=== PATIENT | female | born 1945 | race African-American/Black ===

== ENCOUNTER 2017-04-11 18:30 | Emergency (ER) | payer MEDICARE, BC ==
--- NOTE | ~2017-04-11 | EKG ---
PATIENT: MEET NOVOA UNIT #: [id number] Ventricular Rate: 66 BPM Atrial Rate: 66 BPM P-R Interval: 188 ms QRS Duration: 92 ms Q-T Interval: 396 ms QTC Calculation(Bezet): 415 ms P [place]: 58 degrees Calculated R [place]: -67 degrees Calculated T [place]: 72 degrees Diagnosis Line: Normal sinus rhythm Diagnosis Line: Left anterior fascicular block Diagnosis Line: Abnormal ECG Diagnosis Line: Diagnosis Line: Confirmed by AJTIH ORTEGA MD ([id number]) on Diagnosis Line: 04/13/2017 9:57:00 AM INTERPRETING MD: NOAH
[~2017-04-11 18:30] MED LIST: LAMICTAL PO; LOPRESSOR PO; METFORMIN PO; PAXIL PO; PHENERGAN25 M1 PO; PREDNISONE PO; ZESTORETIC 20/21 TAB PO; ZOCOR PO
[2017-04-11 19:13] LABS: BASOPHIL# 0.1 X10e3 (0-0.3); BASOPHIL% 0.6 % (0-2.5); EOSINOPHIL# 0.2 X10e3 (0-0.7); EOSINOPHIL% 1.3 % (0.0-7.0); HEMATOCRIT 41.1 % (35.0-45.0); HEMOGLOBIN 13.5 gm/dL (12.0-16.0); LYMPHOCYTE% 25.1 % (17.0-45.0); MEAN CELL VOLUME 84.4 FL (83-96); MEAN CORPUSCULAR HEMOGLOBIN 27.6 PG (28-34); MEAN CORPUSCULAR HGB CONC 32.8 g/dL (30-36); MEAN PLATELET VOLUME 7.7 FL (6.5-11.5); MONOCYTE% 8.6 % (3.0-12.0); NEUTROPHIL# 7.6 X10e3 (1.5-7.1); NEUTROPHIL% 64.4 % (40-75); PLATELET COUNT 318 X10e3 (140-420); RED BLOOD COUNT 4.87 X10e (3.90-5.30); RED CELL DISTRIBUTION WIDTH 14.6 % (11.0-15.5); WHITE BLOOD COUNT 11.9 X10e3 (4.0-10.5)
[2017-04-11 19:14] LABS: DIFF IND NO
[2017-04-11 19:25] LABS: POC - CKMB 1.3 ng/mL (0.0-7.9); POC - TROPONIN <0.05 ng/mL (<=0.05)
[2017-04-11 19:36] LABS: CALCIUM SERUM 9.6 mg/dL (8.4-10.2); CREATININE SERUM 0.8 mg/dL (0.6-1.4)
[2017-04-11 19:40] LABS: POTASSIUM 2.9 mmol/L (3.5-5.1)
[2017-04-11 20:34] LABS: URINE SOURCE CLEAN CATCH
[2017-04-11 20:41] LABS: URINE APPEARANCE CLEAR; URINE BILIRUBIN NEG (NEG); URINE BLOOD 1+ (NEG); URINE COLOR YELLOW; URINE GLUCOSE NEG (NEG); URINE KETONE NEG (NEG); URINE LEUKOCYTE ESTERASE NEG (NEG); URINE NITRATE NEG (NEG); URINE PH 8.5 (5-8); URINE PROTEIN 2+ (NEG); URINE SPECIFIC GRAVITY 1.009 (1.003-1.035); URINE UROBILINOGEN 0.2 MG/DL (NEG)
[2017-04-11 20:45] LABS: CULTURE INDICATED? NO; URINE BACTERIA AUWI NEG (NEGATIVE); URINE SQUAMOUS EPITHELIAL CELL NONE SEEN /[HPF]; UWBCS1 AUWI 0-2 (0-5)
== END 2017-04-11 21:14 | disposition home or self-care (01) ==
LOC: CED 18:30
PROVIDERS: Emergency Medicine
DX: E87.6 Hypokalemia (principal); R51 Headache; Z88.5 Allergy status to narcotic agent; Z91.041 Radiographic dye allergy status; Z88.8 Allergy status to other drugs, medicaments and biological substances
CPT/HCPCS: 36415; 80048; 81003; 82553; 82947; 83735; 84484; 85025; 93005; 96361; 96374; 99285; J1885

== ENCOUNTER 2017-04-15 14:31 | Emergency (ER) | payer MEDICARE, BC ==
--- NOTE | ~2017-04-15 | US85 ---
[facility] A Service of [facility] & [facility] RADIOLOGY TEXT RESULTS PATIENT: MEET NOVOA LOCATION: [facility] : 45 UNIT #: [id number] AGE: [address]: Franco Palomo MD SEX: F ORDER DR: [id number] [facility] [address] [place], [place] [address] [id number] E MR#: [id number] Acc #: [id number] NAME: MEET NOVOA : 1945 SEX: F STUDY DATE/TIME: 04/15/2017 15:35 UNIT: [facility] ROOM: STUDY DESCRIPTION: LE Veins Unilat or Ltd Stdy Attending Physician: Franco Palomo M.D. Ordering Physician: Ed Gera Mauro M.D. Primary Care Physician: Soraya Meléndez M.D. MEDICAL IMAGING REPORT This report is preliminary unless electronic signature is present EXAM Right lower extremity, venous Duplex; 04/15/2017. HISTORY Right lower extremity pain and edema for 2 weeks. Evaluate for deep vein thrombosis. TECHNIQUE Venous ultrasound examination of the right lower extremity was performed using grayscale, spectral Doppler and color flow Doppler imaging. FINDINGS The examination is negative. There is no evidence of right lower extremity deep venous thrombus from the groin to the lower calf. Visualized greater saphenous vein is also patent. IMPRESSION Negative examination. No evidence of right lower extremity DVT. Dictated by... Nadir Staton M.D. THIS IS AN ELECTRONICALLY VERIFIED REPORT Nadir Staton M.D. at 04/16/2017 2:17 PM PK/chente TD: 04/15/2017 21:08 JOB #: [id number] MEDICAL IMAGING REPORT Page 1 of 1 COPY
== END 2017-04-15 17:14 | disposition home or self-care (01) ==
LOC: CED 14:31
DX: M79.661 Pain in right lower leg (principal); K21.9 Gastro-esophageal reflux disease without esophagitis; J45.909 Unspecified asthma, uncomplicated; F17.200 Nicotine dependence, unspecified, uncomplicated; Z88.8 Allergy status to other drugs, medicaments and biological substances; Z88.5 Allergy status to narcotic agent; Z88.6 Allergy status to analgesic agent
CPT/HCPCS: 93971; 99283

== ENCOUNTER → 2017-04-21 | Outpatient (CLI) | payer MEDICARE, BC ==
[~2017-04-21] MED LIST changes: +ALDACTONE25 MG PO; +ALL DAY ALLERGY10 M2 PO; +AUGMENTIN PO; +CALCITONIN-SAL3.7 ML; +DOXAZOSIN MESYLA2 MG PO; +DYAZIDE 371 CAP 37.5 PO; +FLEXERIL10 MG PO; +HYDRALAZINE HCL25 MG PO; +KCL PO; +LYRICA25 MG DOB; +METFORMIN HCL500 M1 PO; +METOPROLOL SUCC25 MG PO; +PATIENT'S PHARMACY; +PAXIL30 MG PO; +PRAVASTATIN SOD40 MG PO; +VITAMIN B12-FO1 EACH PO; +VITAMIN D250000 UNIT PO; +VOLTAREN75 MG PO; +ZYRTEC1 MG/1 ML PO
--- NOTE | ~2017-04-21 | CT14 ---
[facility] A Service of [facility] & [facility] RADIOLOGY TEXT RESULTS PATIENT: MEET NOVOA [facility] UNIT #: [id number] AGE: [address]: Andrew Santoro MD SEX: F ORDER DR: [id number] [facility] [address] [place], [place] [address] [id number] O MR#: [id number] Acc #: [id number] NAME: MEET NOVOA : 1945 SEX: F STUDY DATE/TIME: 04/21/2017 15:22 UNIT: [facility] ROOM: STUDY DESCRIPTION: CT Angio Abdomen and Pelvis Attending Physician: Andrew Santoro M.D. Referring Physician: Andrew Santoro M.D. Ordering Physician: Andrew Santoro M.D. Primary Care Physician: Soraya Meléndez M.D. MEDICAL IMAGING REPORT This report is preliminary unless electronic signature is present EXAM CT angiogram of the abdomen and pelvis. CLINICAL HISTORY This patient is status post endovascular repair of an abdominal aortic aneurysm was performed on October 20, 2014. This is a followup study. COMPARISON Comparison is made to a prior study from October 21, 2016, which showed a persistent type 2 endoleak. TECHNIQUE Axial precontrast imaging was obtained through the stent followed by arterial phase imaging through the abdomen and pelvis and 90 second delayed-phase imaging through the stent. Following this, 3-D reformatted images were obtained. This CT exam was performed with one or more of the following radiation dose reduction techniques: automatic exposure control, adjustment of mA and/or kV according to patient size, and iterative reconstruction. FINDINGS Images through the lung bases demonstrate bilateral emphysematous changes. Mild scarring at the left lung base is stable when compared to prior examinations. Abdominal aortic stent graft extends in the origins of the renal arteries into the common iliac arteries bilaterally. On today's examination, the aneurysm sac actually measures smaller at 4.1 cm, previously in October of 2016, it measured up to 4.4 cm, and more inferiorly, it measures 4.0 x 3.3 cm, previously 4.3 x 3.4 cm. I do think there is probably a small persistent endoleak supplied by the lumbar artery. This is best seen on the delayed phase imaging. Certainly, however, it is much less apparent than on prior examinations. Celiac axis appears widely patent. The [facility] A Service of [facility] RADIOLOGY TEXT RESULTS PATIENT: MEET NOVOA LOCATION: 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 Superior mesenteric artery is widely patent. Renal arteries do appear to be patent. 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 There is reflux of contrast material into the hepatic veins on the arterial phase exam. This finding can be seen with right-sided heart failure, but is stable when compared to the prior study. There is a 1.8 cm left renal nodule which has been unchanged on exams dating back to April of 2015, and thus it is felt to be benign. There are bilateral renal cysts. There is some atrophy seen within the left kidney inferiorly. This has been present on prior examinations and again likely reflects some ischemia. Uterus is surgically absent. There is colonic diverticulosis without any evidence of diverticulitis. No free fluid or adenopathy is seen within the pelvis. No aggressive osseous abnormalities are seen. IMPRESSION 1. The patient actually appears to have a decrease in the size of the aneurysm sac when compared to the prior examinations, now measuring up to about 4.1 cm in maximal dimensions. This has decreased from 4.4 cm in October of this year. I do think there is probably a small persistent endoleak but it is very subtle when compared to prior examinations, and is best seen on the delayed phase imaging. 2. 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 3. Stable left adrenal nodule not significantly changed when compared to April of 2015 and is felt to be benign. 4. Colonic diverticulosis without any evidence of diverticulitis. Dictated by... Devora Vizcaino M.D. THIS IS AN ELECTRONICALLY VERIFIED REPORT Devora Vizcaino M.D. at 04/23/2017 5:00 PM KHRIS/chente TD: 04/22/2017 18:34 JOB #: [id number] MEDICAL IMAGING REPORT Page 1 of 1 COPY
[2017-04-21 14:51] LABS: CREATININE SERUM 0.8 mg/dL (0.6-1.4)
== END | disposition home or self-care (01) ==
LOC: CCAT 13:45 → CLAB 13:45 → CCAT 14:00
PROVIDERS: Surgery Vascular Surgery
DX: T82.330A Leakage of aortic (bifurcation) graft (replacement), initial encounter (principal); I71.4 Abdominal aortic aneurysm, without rupture; E27.8 Other specified disorders of adrenal gland; K57.30 Diverticulosis of large intestine without perforation or abscess without bleeding
CPT/HCPCS: 36415; 74174; 82565; Q9967

== ENCOUNTER → 2017-05-06 | Outpatient (CLI) | payer MEDICARE, BC ==
--- NOTE | ~2017-05-06 | BD1 ---
[facility] A Service of [facility] & [facility] RADIOLOGY TEXT RESULTS PATIENT: MEET NOVOA LOCATION: [facility] : 45 UNIT #: [id number] AGE: [address]: Soraya Meléndez MD SEX: F ORDER DR: [id number] [facility] [address] [place], [place] [address] [id number] O MR#: [id number] Acc #: [id number] NAME: MEET NOVOA : 1945 SEX: F STUDY DATE/TIME: 05/06/2017 14:53 UNIT: [facility] ROOM: STUDY DESCRIPTION: BD Dexa Bone Dens 1+ Site Attending Physician: Soraya Meléndez M.D. Referring Physician: Soraya Meléndez M.D. Ordering Physician: Soraya Meléndez M.D. Primary Care Physician: Soraya Meléndez M.D. MEDICAL IMAGING REPORT This report is preliminary unless electronic signature is present EXAM DXA scan, 05/06/2017 HISTORY Status post menopause with no hormone replacement therapy. Osteopenia. Hysterectomy at age 41 with removal of one ovary. Arthritis and diabetes. Hypertension with blood pressure medication for 30 years. Smoking history for 40 years. FINDINGS Bone mineral density in the lumbar spine from L1-L4 was 1.062 g/cm2 which is 0.8 standard deviations below the mean when compared to the young adult reference population which is within the range of normal. This is 1.6 standard deviations above the mean when compared to the age-matched population. Compared with 09/22/2014 there has been an increase in bone mineral density in the lumbar spine of 1.1%. Bone mineral density in the left femoral neck was 0.803 g/cm2 which is 1 standard deviation below the mean when compared to the young adult reference population which is characteristic of osteopenia. This is 0.4 standard deviations above the mean when compared to the age-matched population. Compared with 09/22/2014 there has been a decrease in bone mineral density in the left hip of 4.4%. IMPRESSION Bone mineral density in the lumbar spine within the range of normal and within the left hip characteristic of osteopenia. Compared with 09/22/2014 there has been an increase in bone mineral density in the lumbar spine and a decrease in bone mineral density in the left hip. Dictated by... Nadir Staton M.D. [facility] A Service of [facility] RADIOLOGY TEXT RESULTS PATIENT: MEET NOVOA [id number] : [birth year] UNIT #: [id number] AGE: [address]: Soraya Meléndez MD SEX: F ORDER DR: THIS IS AN ELECTRONICALLY VERIFIED REPORT Nadir Staton M.D. at 05/07/2017 7:36 AM Tali TD: 05/06/2017 16:43 JOB #: [id number] MEDICAL IMAGING REPORT Page 1 of 1 COPY
== END | disposition home or self-care (01) ==
LOC: CWCC 14:30
DX: Z13.820 Encounter for screening for osteoporosis (principal); M85.88 Other specified disorders of bone density and structure, other site
CPT/HCPCS: 77080

== ENCOUNTER → 2017-05-13 | Outpatient (CLI) | payer MEDICARE, BC ==
--- NOTE | ~2017-05-13 | US85 ---
[facility] A Service of [facility] & [facility] RADIOLOGY TEXT RESULTS PATIENT: MEET NOVOA LOCATION: [facility] : 45 UNIT #: [id number] AGE: [address]: Soraya Meléndez MD SEX: F ORDER DR: [id number] [facility] [address] [place], [place] [address] [id number] O MR#: [id number] Acc #: [id number] NAME: MEET NOVOA : 1945 SEX: F STUDY DATE/TIME: 05/13/2017 15:58 UNIT: [facility] ROOM: STUDY DESCRIPTION: [facility] Unilat or [facility] Stdy Attending Physician: Soraya Meléndez M.D. Referring Physician: Soraya Meléndez M.D. Ordering Physician: Soraya Meléndez M.D. Primary Care Physician: Soraya Meléndez M.D. MEDICAL IMAGING REPORT This report is preliminary unless electronic signature is present EXAM Right lower extremity venous duplex, 05/13/2017 HISTORY Right lower extremity swelling for 1 month. FINDINGS Duplex imaging of the right lower extremity reveals patent femoral, popliteal, tibial, peroneal veins with normal venous filling in all the visualized veins. No evidence of thrombosis is seen. IMPRESSION No evidence of DVT is seen in the right lower extremity. Dictated by... Andrew Santoro M.D. THIS IS AN ELECTRONICALLY VERIFIED REPORT Andrew Santoro M.D. at 05/27/2017 2:15 PM /destiny TD: 05/14/2017 03:35 JOB #: [id number] MEDICAL IMAGING REPORT Page 1 of 1 COPY
== END | disposition home or self-care (01) ==
LOC: CNIV 15:37
DX: M79.604 Pain in right leg (principal); M79.89 Other specified soft tissue disorders
CPT/HCPCS: 93971

== ENCOUNTER 2017-05-23 06:07 | Inpatient (IN) | payer MEDICARE, BC ==
[~2017-05-23] VITALS: Ht 165.1 cm; Wt 80.2 kg
--- NOTE | ~2017-05-23 | CO ---
Unit #: [id number] #: [id number] Patient: MEET NOVOA [id number] [facility] [address] [place], [place] [address] [id number] I MR#: [id number] NAME: MEET NOVOA ROOM: 552 Age: 71 Sex: F Admission Date: 05/25/2017 : 1945 Attending Physician: Vicki Patterson M.D. Primary Care Physician: Soraya Meléndez M.D. CONSULTATION REPORT PRIMARY CARE PHYSICIAN Soraya Meléndez M.D. REASON FOR CONSULTATION Syncope/near syncope. PATIENT IDENTIFICATION This is a 71-year-old, right-handed female, who was evaluated in room 552 at [facility]. SOURCE OF INFORMATION The patient and evaluation done by admitting team. PROBLEM LIST 1. History of hypertension. 2. Hyperlipidemia. 3. Abdominal aortic aneurysm, status post repair. 4. Chronic pain syndrome. 5. Obstructive sleep apnea, but it looks like she is not using CPAP. 6. GERD. 7. Depression. 8. Diabetes. 9. Possible Zoraida fundoplication. 10. Abdominal aortic aneurysm repair. 11. Cholecystectomy. 12. Surgery for ectopic . 13. Cardiac cath in the past and Holter monitoring, other testing done in the past. HISTORY OF PRESENT ILLNESS This is a 71-year-old lady who actually came in because she was found sort of stumbling around and sort of fell. The patient says that she went to the boat/casino and she came home around 4:30 to 5:00 and she started stumbling. She ended up in her daughter's room which is [id number] to her room and then went into her door and sort of hit the wall. There is question whether she really passed out or not. She was feeling lightheaded and sort of blackout like sensation before this. Interestingly, this is the third episode and the two other happened in her kitchen and on those two, she reports that she felt like she was about to blackout, so she started stumbling and holding different appliances in her kitchen from the sink she went to the counter and then from that, she went to the living area and she sort of stumble here and there and hitting the Unit #: [id number] #: [id number] Patient: MEET NOVOA, but really did not fall and did not pass out. These 2 episodes occurred late in the evening as she said she had a normal routine day. She has had her meals and they could not find any other abnormality. Her vital signs are stable. Cardiology have seen her and they were doing their workup. It looked like in the past, she has had Holter monitoring and nothing it showed up, but that was about 8 years ago. Her labs were really not showing anything major. She is mildly anemic, but nothing major otherwise. There is nothing suggesting infection. She had a head CT done, which was unremarkable. She had carotids done, it looked okay to me, but the workup is pending. Before this nothing suggesting active seizures or spacing out episodes or jerking or daydreaming. No unexplained loss of bowel or bladder control. No unexplained loss of time. No change in medication and she is taking Lyrica and she says 25 mg, but I believe it is 75 mg and she was supposed to take b.i.d. and she is taking once a day. No infection, falls, injuries, exposure to toxins, or insect bites etc. No smoking or drinking. Her urine drug screen was positive for marijuana, but that could be an artifact from medications. PAST MEDICAL HISTORY As discussed above. PAST SURGICAL HISTORY As above. ALLERGIES Amitriptyline, hydrocodone, oxycodone, propoxyphene, lisinopril, codeine, prednisone, fentanyl, amlodipine. HOME MEDICATIONS Paxil 30 mg b.i.d., pravastatin 40 mg a day, metformin 500 mg b.i.d., metoprolol 25 mg daily, potassium 20 mEq b.i.d., diclofenac 75 mg daily p.r.n., Flexeril 10 mg daily p.r.n., Lyrica once a day dosage questionable, doxazosin 2 mg daily, vitamin D of 50,000 units weekly, vitamin B12, folic acid daily, calcitonin nasal spray, Dyazide 37.5/25, cetirizine 10 mg daily, Augmentin questionable. FAMILY HISTORY Diabetes, both parents. SOCIAL HISTORY The patient lives with her daughter. She smokes about a pack of cigarettes daily. Denies use of drugs and alcohol. REVIEW OF SYSTEMS Detailed review of system was attempted. CONSTITUTIONAL: The patient denies any weight issues, fever, chills, Unit #: [id number] #: [id number] Patient: MEET NOVOA rigor, or sweats. HEENT: No headaches. No double vision, earache, runny nose, or sore throat. CARDIOVASCULAR: No chest pain, clubbing, cyanosis, orthopnea, or palpitation. PULMONARY: No shortness of air, cough, or expectoration. GASTROINTESTINAL: No nausea, vomiting, diarrhea, constipation. GENITOURINARY: No genitourinary symptom. PSYCHIATRIC: No extremity problem. BACK: No back problem. PSYCHIATRIC: No psychiatric issue except for depression. NEUROLOGIC: Near syncope. No other hematologic, dermatologic, or endocrine issues known to me. PHYSICAL EXAMINATION VITAL SIGNS: Temperature 98 degrees Fahrenheit, pulse is 53, respirations 16, blood pressure 195/88, O2 saturations are 96%. Three positional blood pressure and pulse really did not show anything major. NEUROLOGIC: The patient is awake. She is alert. She is oriented. She can name. She can follow commands. No right or left confusion. No finger agnosia. Cranial nerve examination demonstrates full christianson of vision to confrontation. Eye movements are conjugate. I did not see any ptosis. I did not see any nystagmus. Extraocular movements are intact. Sensation on the face and scalp are normal. Strength of muscles of facial expression normal. Hearing seemed to be intact bilaterally. Tongue was midline. Uvula was midline. Palate elevation was normal. Head turning and shoulder shrugs were unremarkable. Motor examination demonstrated normal bulk, tone. Strength was essentially 5/5. Sensory examination intact for soft touch and pain sensation. No extinction was seen. Romberg was not evaluated. Gait examination was deferred. I could not get any reflexes. Toes are equivocal. Coordination was normal. DIAGNOSTIC STUDIES LABORATORY RESULTS: Reviewed. Hemoglobin A1c was 5.9. LDL is 95. When she came in, her alcohol level was 5. White count is 8.4, H and H of 11.1 and 34.2. IMPRESSION This is a very interesting 71-year-old female with syncopal/near syncopal episodes, very atypical. I will check her EEG. I will increase the Lyrica to 75 mg b.i.d. because it is a good antiepileptic. I am reluctant to call her epileptic yet. I will check her EEG and if otherwise she is stable, she can be discharged to follow up with Neurology. Loss of awareness. Precautions apply regardless because she just seemed to have loss of awareness, but she is not typically and classically Unit #: [id number] #: [id number] Patient: MEET NOVOA postictal. I agree with sleep evaluation and we will go from there. Call me for any other questions, issues, or concerns and I am hoping that I will be able to talk to her daughter because she may have witnessed one of these events to see if we get a clear picture of whether there is near syncope, syncope, or seizure. Cardiac issues are high on my list for these cloudy sensorium and blacking out type darkness and then stumbling and when she lays down or falls and she is okay, but that has only happened once, so again epilepsy not established, but we will see. Call me if any other questions, issues, or concerns. Dictated by... Tita Shaffer/conchita TD: 05/26/2017 03:07 JOB #: [id number] CONSULTATION REPORT Page 1 of 1 X Gurjit Khoury MD CONSULTATION REPORT
--- NOTE | ~2017-05-23 | HP ---
Unit #: [id number] #: [id number] Patient: MEET NOVOA [id number] [facility] [address]. [place], [place] [address] [id number] I MR#: [id number] NAME: MEET NOVOA ROOM: 552 Age: 71 Sex: F Admission Date: 05/23/2017 : 1945 Attending Physician: Vane Ragsdale M.D. Primary Care Physician: Soraya Meléndez M.D. HISTORY AND PHYSICAL CHIEF COMPLAINT Syncope. HISTORY OF PRESENT ILLNESS The patient is a 71-year-old female with past medical history of hypertension, hyperlipidemia, abdominal aortic aneurysm, chronic pain, obstructive sleep apnea, GERD, depression, diabetes who presented to the emergency department for evaluation of the above. The patient states that she was in her usual state of health until the morning of admission when she passed out. She states that she was coming inside after being out for the evening. This occurred around 4:30 to 5:00 this morning. [place] the [place]. She states that she passed out. It was not witnessed. She hit her head. She denied any feelings of lightheadedness. No chest pain. She does feel somewhat lightheaded now. She states that she has had two other episodes within the past one to two months. The most recent one occurred in April when she was standing in the kitchen at the sink and passed out. She did not seek medical care at that time. She denies any fever. No cough or cold symptoms. No abdominal pain. No vomiting or diarrhea. She states that she had last eaten about four to five hours prior to the episode. She presented to the emergency department for further evaluation. In the emergency department, initial pulse and blood pressure were 60 and 151/[address] of the head was done and showed nothing acute. CT of the cervical spine showed no fracture. EKG showed sinus bradycardia with a rate of 59 beats per minute. Initial cardiac enzymes were negative. Laboratory essentially unremarkable except for potassium of 3.3. She is being admitted to [facility] for evaluation and further treatment. PAST MEDICAL HISTORY 1. Hospitalized at [facility] in approximately 2014 for abdominal aortic aneurysm repair. 2. Abdominal aortic aneurysm, status post repair. 3. Chronic pain, not followed by pain management. 4. Obstructive sleep apnea, not on CPAP. 5. GERD, status post what sounds like Zoraida fundoplication. 6. Depression. 7. Diabetes. 8. Hypertension, followed by Dr. Mederos. 9. Hyperlipidemia. 10. Echocardiogram, August 10, 2014, showed mild concentric left ventricular hypertrophy. Doppler flow pattern was normal for age. Unit #: [id number] #: [id number] Patient: MEET NOVOA Ejection fraction 65%. 11. Holter monitor from March 23, 2009, showed underlying sinus rhythm, isolated premature atrial ectopy, occasional nonconducted P waves leading to rare pauses as long as 2 seconds. Isolated premature ventricular ectopy was also noted. PAST SURGICAL HISTORY 1. Possibly Zoraida fundoplication. 2. Abdominal aortic aneurysm repair. 3. Cholecystectomy. 4. Surgery for ectopic . 5. Cardiac catheterization at [facility] more than five years ago. SOCIAL HISTORY The patient's daughter lives with her. She smokes a pack of cigarettes daily. She denies alcohol use. She typically walks without assistance. FAMILY HISTORY Notable for both parents having diabetes. ALLERGIES Amitriptyline, hydrocodone, oxycodone, propoxyphene, lisinopril, codeine, prednisone, fentanyl, amlodipine. HOME MEDICATIONS 1. Paxil 30 mg twice daily. 2. Pravastatin 40 mg daily. 3. Metformin 500 mg twice daily. 4. Metoprolol 25 mg daily. 5. Potassium 20 mEq twice daily. 6. Diclofenac 75 mg twice daily p.r.n. 7. Flexeril 10 mg daily p.r.n. 8. Lyrica 25 mg daily. 9. Doxazosin 2 mg daily. 10. Vitamin D at 50,000 units weekly. 11. Vitamin B12 and folic acid daily. 12. Calcitonin nasal spray. 13. Dyazide 37.5/25 daily. 14. Cetirizine 10 mg daily p.r.n. 15. Augmentin is also listed. REVIEW OF SYSTEMS A complete review of systems is negative except as indicated in the HPI. The patient states that she thinks she had a stress test at [facility] within the past five years. The patient's blood sugars are typically in the low 100s. The patient states that she has had intermittent swelling and pain involving the right leg for an unknown duration. DIAGNOSTIC STUDIES LABORATORY: Complete blood count notable for white blood cell count of 10.8, hemoglobin 11.8. Comprehensive metabolic panel notable for potassium of 3.3. Glucose is 141. IMAGING: Chest x-ray shows nothing acute. CT of the head shows nothing acute. Unit #: [id number] #: [id number] Patient: MEET NOVOA CT of the cervical spine shows no fracture. CARDIOVASCULAR: EKG showed sinus bradycardia with a rate of 59 beats per minute. PHYSICAL EXAMINATION VITAL SIGNS: Temperature is 98, pulse 60, respirations 19, blood pressure 151/80, oxygen saturation 98% on room air. GENERAL: The patient is a very pleasant -[place] female who is awake and alert in no acute distress. HEENT: The head is atraumatic. Mucous membranes are moist. NECK: Supple. Trachea is midline. CARDIOVASCULAR: Regular rate and rhythm. LUNGS: Clear to auscultation bilaterally with no increased work of breathing. ABDOMEN: Soft, nontender with bowel sounds present in all four quadrants. EXTREMITIES: Nontender with no pedal edema. NEUROLOGIC: The patient is awake and alert. She is oriented x3. She follows commands. PSYCHIATRIC: Mood and affect are normal. The patient is cooperative. SKIN: Skin of examined areas is warm and dry. ASSESSMENT The patient is a 71-year-old female with: 1. Syncope: This is the patient's third episode in the past month or two. The patient had a cardiac catheterization more than five years ago. She has had a stress test within the past five years. Records are unavailable at this time. 2. Hypokalemia with potassium of 3.3. 3. Hypertension. 4. Hyperlipidemia. 5. Abdominal aortic aneurysm, status post repair. 6. Chronic pain. 7. Obstructive sleep apnea, not on CPAP. 8. Gastroesophageal reflux disease. 9. Depression. 10. Diabetes. 11. Tobacco abuse. PLAN 1. Admit for observation to intermediate level. 2. Healthy heart consistent carb diet. 3. Fall precautions. 4. Orthostatics q. shift. 5. A 2D echocardiogram. 6. Serial cardiac enzymes. 7. Check urinalysis with culture and sensitivity. 8. Blood alcohol and urine tox screen. 9. Hold Flexeril and Lyrica. 10. Physical therapy/occupational therapy to evaluate and treat. 11. Normal saline at 75 mL/hr. 12. Hemoglobin A1c. 13. Low-dose sliding scale insulin with Accu-Cheks. 14. Check magnesium level. 15. Potassium/magnesium protocol. 16. Repeat labs in the morning including magnesium. 17. Right lower extremity venous Doppler for further evaluation of right leg swelling and pain. Unit #: [id number] #: [id number] Patient: MEET NOVOA 18. Additional workup and consultants based on above. Dictated by Vane Ragsdale M.D. SHAWNA/janett TD: 05/23/2017 11:47 JOB #: [id number] HISTORY AND PHYSICAL Page 1 of 1 X Vane Ragsdale MD X HISTORY AND PHYSICAL
--- NOTE | ~2017-05-23 | ST ---
Unit #: [id number] #: [id number] Patient: MEET NOVOA [id number] [address] [place], [place] [address] [id number] MR#: [id number] NAME: MEET NOVOA : 1945 SEX: F STUDY DATE/TIME: 05/25/2017 UNIT: [id number] ROOM: 552 STUDY DESCRIPTION: Stress nuclear and ECG comb. Attending Physician: Vicki Patterson M.D. Primary Care Physician: Soraya Meléndez M.D. CARDIOLOGY REPORT INDICATIONS Syncope. SUMMARY Patient received Lexiscan intravenously while at rest, as well as technetium 99 Cardiolite 11.0 and 31.9 mCi at rest and stress respectively. Appropriate views were obtained. FINDINGS The patient experienced shortness of breath during the infusion, without chest pain. The resting ECG showed T wave inversion in AVL, with no diagnostic ST shifts, no significant dysrhythmias, and no heart block during stress. There were PACs noted. The heart rate increased from 61 to 92, and blood pressure decreased 196/95 to 178/85. Perfusion images demonstrated intestinal artifact both at rest and stress. There was chest wall attenuation artifact both at rest and stress. Otherwise perfusion is normal and equivalent between rest and stress. Planar images demonstrate no significant patient motion either at rest or stress. There is no significant lung uptake, LV or RV enlargement. Summed stress score is 0. Gated perfusion wall motion analysis demonstrates normal wall motion throughout the myocardium with end-diastolic volume 96 mL, ejection fraction 62%. IMPRESSION 1. Myocardial perfusion scan shows no ischemia or infarction. 2. No cause for syncope identified. 3. Normal study with normal ECG, wall motion, LV size, and perfusion. Dictated by... Tita Jordan/rigoberto TD: 05/27/2017 09:57 JOB #: [id number] Unit #: [id number] #: [id number] Patient: MEET NOVOA CARDIOLOGY REPORT Page 1 of 1 X Avery Wells MD CARDIOLOGY REPORT
--- NOTE | ~2017-05-23 | EKG ---
PATIENT: MEET NOVOA UNIT #: [id number] Ventricular Rate: 59 BPM Atrial Rate: 59 BPM P-R Interval: 188 ms QRS Duration: 84 ms Q-T Interval: 412 ms QTC Calculation(Bezet): 407 ms P Buchanan: 107 degrees Calculated R Buchanan: -16 degrees Calculated T Buchanan: 72 degrees Diagnosis Line: Sinus bradycardia Diagnosis Line: Otherwise normal ECG Diagnosis Line: When compared with ECG of 11-APR-2017 19:03, Diagnosis Line: Left anterior fascicular block is no longer Diagnosis Line: Present Diagnosis Line: Confirmed by LYNDSEY EASON MD ([id number]) on 05/23/2017 Diagnosis Line: 4:59:09 PM INTERPRETING MD: JENARO CANDELARIO
--- NOTE | ~2017-05-23 | US85 ---
[facility] A Service of [facility] & [facility] RADIOLOGY TEXT RESULTS PATIENT: MEET NOVOA LOCATION: [place] [address]- : [birth year] UNIT #: [id number] AGE: [address]: Vicki Patterson MD SEX: F ORDER DR: [id number] [facility] [address] [place], [place] [address] [id number] I MR#: [id number] Acc #: [id number] NAME: MEET NOVOA : 1945 SEX: F STUDY DATE/TIME: 05/23/2017 13:42 UNIT: [facility] ROOM: [facility] STUDY DESCRIPTION: US LE Veins Unilat or Ltd Stdy Attending Physician: Vane Ragsdale M.D. Ordering Physician: Vane Ragsdale M.D. Primary Care Physician: Soraya Meléndez M.D. MEDICAL IMAGING REPORT This report is preliminary unless electronic signature is present EXAM Right lower extremity venous duplex 05/23/2017 HISTORY Right leg pain and edema, 4.5 half months worsening over the past week. Evaluate for deep vein thrombosis. TECHNIQUE Venous ultrasound examination of the right lower extremity was performed using grayscale, spectral Doppler and color flow Doppler imaging. FINDINGS The examination is negative. There is no evidence of right lower extremity deep venous thrombus from the groin to the lower calf. Visualized greater saphenous vein is also patent. IMPRESSION Negative examination. No evidence of right lower extremity deep venous thrombosis. Dictated by... Nadir Staton M.D. THIS IS AN ELECTRONICALLY VERIFIED REPORT Nadir Staton M.D. at 05/26/2017 2:10 PM KRT/to TD: 05/23/2017 18:01 JOB #: [id number] MEDICAL IMAGING REPORT Page 1 of 1 COPY
--- NOTE | ~2017-05-23 | US37 ---
[facility] A Service of [facility] & [facility] RADIOLOGY TEXT RESULTS PATIENT: MEET NOVOA LOCATION: [facility] 55- : [birth year] UNIT #: [id number] AGE: [address]: Vicki Patterson MD SEX: F ORDER DR: [id number] [facility] [address] [place], [place] [address] [id number] I MR#: [id number] Acc #: [id number] NAME: MEET NOVOA : 1945 SEX: F STUDY DATE/TIME: 05/25/2017 10:23 UNIT: [facility] ROOM: [facility] STUDY DESCRIPTION: US Carotid W/Doppler Bilateral Attending Physician: Vicki Patterson M.D. Ordering Physician: Lalo Mejia M.D. Primary Care Physician: Soraya Meléndez M.D. MEDICAL IMAGING REPORT This report is preliminary unless electronic signature is present EXAM Bilateral carotid duplex HISTORY Syncope. FINDINGS There is patent flow seen throughout the right common carotid, internal carotid and external carotid arteries. There is some intimal hyperplasia, but no significant atherosclerosis is noted throughout the carotid vasculature. The right common carotid peak velocity is 73 cm/sec. The right internal carotid artery peak systolic/end-diastolic velocities are: proximal 66/11 cm/sec, mid 80/19 cm/sec, distal 76/16 cm/sec. The right external carotid artery peak velocity is 105 cm/sec, and vertebral artery 38 cm/sec. The right ICA:CCA ratio is 1.2. There is patent flow seen throughout the left common carotid, internal carotid and external carotid arteries. At the left carotid bifurcation, there is some mild heterogeneous irregular plaque that is also echogenic. The left common carotid peak velocity is 90 cm/sec. The left internal carotid artery peak systolic/end-diastolic velocities are: proximal 71/13 cm/sec, mid 76/20 cm/sec, distal 93/24 cm/sec. The left external carotid artery peak velocity is 127 cm/sec, and vertebral artery 52 cm/sec. The left ICA:CCA ratio is 1.0. IMPRESSION 1. The right carotid artery has no significant atherosclerosis, and is an otherwise normal study. 2. The left carotid artery has mild atherosclerosis, which is not hemodynamically significant by duplex criteria (less than 50%). 3. Vertebrals flow antegrade bilaterally. [facility] A Service of [facility] RADIOLOGY TEXT RESULTS PATIENT: MEET NOVOA LOCATION: [place] [address] : [birth year] UNIT #: [id number] AGE: [address]: Vicki Patterson MD SEX: F ORDER DR: Dictated by... Sly Kumar M.D. THIS IS AN ELECTRONICALLY VERIFIED REPORT Sly Kumar M.D. at 05/28/2017 12:06 PM DONALD/raul TD: 05/26/2017 22:29 JOB #: [id number] MEDICAL IMAGING REPORT Page 1 of 1 COPY
--- NOTE | ~2017-05-23 | CT52 ---
[facility] A Service of [facility] & [facility] RADIOLOGY TEXT RESULTS PATIENT: MEET NOVOA LOCATION: [place] [address]- : [birth year] UNIT #: [id number] AGE: [address]: Vane Ragsdale MD SEX: F ORDER DR: [id number] [facility] [address] [place], [place] [address] [id number] I MR#: [id number] Acc #: [id number] NAME: MEET NOVOA : 1945 SEX: F STUDY DATE/TIME: 05/23/2017 7:30 UNIT: [facility] ROOM: [facility] STUDY DESCRIPTION: CT Cervical Spine Wo Cont Attending Physician: Vane Ragsdale M.D. Ordering Physician: Franco Brenner M.D. Primary Care Physician: Soraya Meléndez M.D. MEDICAL IMAGING REPORT This report is preliminary unless electronic signature is present EXAM Cervical spine series 05/23/2017 HISTORY Syncope and dizzy onset this a.m. hit left side of head and neck on dresser left side neck pain and headache. FINDINGS CT head cervical spine performed. The bone soft tissue windows reviewed. Sagittal and coronal reconstructions performed. The visualized portions of the brain are unremarkable. The visualized paranasal sinuses and mastoid air cells are clear. Nasopharyngeal soft tissues unremarkable. Multiple bilateral palatine tonsillar tonsilliths. Oropharyngeal soft tissues otherwise unremarkable. Pharyngeal mucosal retropharyngeal spaces larynx subglottic airway visualized superior mediastinum lung apices thyroid submandibular parotid glands unremarkable. No adenopathy. Unopacified vascular structures appear grossly normal in caliber. There is no clear indication of traumatic soft tissue abnormality. Slight reversal of the normal cervical lordosis centered at the C5 - C6 level. Vertebral body heights within normal limits with mild decrease in the C3 vertebral body height due to endplate degenerative change. Moderate to marked generalized narrowing of intervertebral disc spaces. Multilevel degenerative endplate changes most pronounced inferior endplate C3 superior endplate C4 inferior superior endplates C7 and superior endplate T1. Baseline spinal canal narrowing due to short pedicles exacerbated at multiple levels by the disc osteophyte complexes. The posterior central disc osteophyte complex/disc protrusion C2-C3. Anterior cord contact. Mild central spinal canal narrowing. No cord compression. Similar appearance on MRI 2012. Neural foramina patent without evidence of exiting nerve impingement. [facility] A Service of [facility] RADIOLOGY TEXT RESULTS PATIENT: MEET NOVOA LOCATION: [facility] : [birth year] UNIT #: [id number] AGE: [address]: Vane Ragsdale MD SEX: F ORDER DR: C3-C4: Posterior disc osteophyte complex. The anterior cord contact. Effacement of anterior cord contour. Mild to mild/moderate central spinal canal narrowing. Similar appearance on prior study. Uncovertebral degenerative change right greater than left. Moderate right foraminal narrowing. No significant left foraminal narrowing. C4-C5: Posterior disc osteophyte complex. The anterior cord contact. Effacement of anterior central cord contour. Mild mild/moderate central spinal canal narrowing. Uncovertebral and facet degenerative change. Mild to moderate right foraminal narrowing. No significant left foraminal narrowing. C5 - C6: Posterior disc osteophyte complex. Anterior cord contact. Effacement of anterior cord contour. Mild to mild/moderate central spinal canal narrowing. Similar appearance on prior MRI. Uncovertebral and facet degenerative change right greater than left. Moderate right foraminal narrowing. No significant left foraminal narrowing. C6-C7: Posterior disc osteophyte complex. Anterior cord contact. Mild central spinal canal narrowing. Uncovertebral and facet degenerative change. Mild foraminal narrowing bilaterally. C7 - T1: Spinal canal diameter within normal limits. Minimal posterior disc osteophyte complex. Mild foraminal narrowing. T1-T2: Posterior central disc bulge/protrusion suggested. Possible anterior cord contact. No cord compression. Neural foramina are patent without evidence of exiting nerve impingement. No fracture. IMPRESSION 1. No traumatic fracture or malalignment. There is no clear indication of traumatic soft tissue abnormality in the paraspinal soft tissues. 2. Multilevel degenerative change. Please see [id number] description in body of report above. Findings are similar to MRI July 2013. Dictated by... Kevin Gregorio M.D. THIS IS AN ELECTRONICALLY VERIFIED REPORT Kevin Gregorio M.D. at 05/24/2017 9:43 PM PJ/lizzette TD: 05/23/2017 12:28 JOB #: [id number] MEDICAL IMAGING REPORT [facility]. [facility] A Service of [facility] & [facility] RADIOLOGY TEXT RESULTS PATIENT: MEET NOVOA LOCATION: [place] [address] : [birth year] UNIT #: [id number] AGE: [address]: Vane Ragsdale MD SEX: F ORDER DR: Page 1 of 1 COPY
--- NOTE | ~2017-05-23 | CR72 ---
[facility] A Service of [facility] RADIOLOGY TEXT RESULTS PATIENT: MEET NOVOA LOCATION: [place] [address] : [birth year] UNIT #: [id number] AGE: [address]: Vicki Patterson MD SEX: F ORDER DR: [id number] [facility] [address] [place], [place] [address] [id number] MR#: [id number] Acc #: [id number] NAME: MEET NOVOA : 1945 SEX: F STUDY DATE/TIME: 05/23/2017 6:39 UNIT: [facility] ROOM: STUDY DESCRIPTION: CR Chest Single View Portable Attending Physician: Franco Brenner M.D. Ordering Physician: Franco Brenner M.D. Primary Care Physician: Soraya Meléndez M.D. MEDICAL IMAGING REPORT This report is preliminary unless electronic signature is present EXAM Portable chest. INDICATIONS Syncope today. PROCEDURE Frontal view chest. COMPARISON 02/13/2015. FINDINGS Upper limits of normal heart size. No dense consolidation, visible pleural fluid or pneumothorax. IMPRESSION No active process. Dictated by... Obie Valdez M.D. THIS IS AN ELECTRONICALLY VERIFIED REPORT Obie Valdez M.D. at 05/26/2017 8:51 AM EED/cristine TD: 05/23/2017 08:49 JOB #: [id number] MEDICAL IMAGING REPORT Page 1 of 1 COPY
--- NOTE | ~2017-05-23 | DS ---
Unit #: [id number] #: [id number] Patient: MEET NOVOA [id number] [address] [place], [place] [address] [id number] I MR#: [id number] NAME: MEET NOVOA ROOM: 552 Age: 71 Sex: F Admission Date: 05/23/2017 : 1945 Discharge Date: 05/26/2017 Attending Physician: Vicki Patterson M.D. Primary Care Physician: Soraya Meléndez M.D. DISCHARGE SUMMARY PRINCIPAL DIAGNOSES 1. Syncope with negative workup. 2. Hypertension, uncontrolled. 3. Chronic pain syndrome with intolerance to Neurontin, unable to afford Lyrica. 4. Diabetes mellitus type 2, non-insulin requiring, controlled. Hemoglobin A1C 5.9. 5. Hyperlipidemia. 6. History of abdominal aortic aneurysm status post repair. 7. Tobaccoism. 8. Depression. 9. Gastroesophageal reflux disease. 10. Obstructive sleep apnea, noncompliant with continuous positive airway pressure. 11. Overweight. 12. Hypokalemia. CONSULTANTS 1. Dr. Wells, cardiology. 2. Dr. Khoury, neurology. DIAGNOSTIC STUDIES NEUROLOGY: EEG is currently pending. CARDIOVASCULAR: Two-dimensional echocardiogram on May 23, 2017 with ejection fraction of 55%, epwz-nz-pnsumyxz mitral regurgitation, mild tricuspid regurgitation and budq-di-blftqgno pulmonic valve regurgitation noted. Cardiolite stress test, which was negative for ischemia. IMAGING: CT of the head without contrast on May 23, 2017, which was normal. Chest x-ray on May 23, 2017, which was normal. CT of cervical spine without contrast on May 23, 2017 without any acute fracture. Degenerative changes noted. Right lower extremity venous Doppler, which was negative for DVT. CLINICAL HISTORY AND HOSPITAL COURSE Ms. Sacha Nguyen is a nice 71-year-old female who presented to the emergency department after passing out at home. She had Unit #: [id number] #: [id number] Patient: MEET NOVOA a similar episode in April and did not seek medical care. Given recurrent episode, she was admitted for further evaluation. Workup in the emergency department was unremarkable, including negative CT scan of the head and neck and normal vital signs. Cardiology was consulted. No evidence of arrhythmia during hospitalization. Two-dimensional echocardiogram and stress test were also done and were unremarkable. No further cardiac workup planned at this point while inpatient. Neurology was consulted given questionable report of seizure, although rather atypical. The patient had been placed on Lyrica as an outpatient, and this dose was initially increased in case there was underlying seizure. However, Lyrica is unaffordable, and the patient never actually filled it. We are going to await EEG and discharge home after. Unless EEG is abnormal, will hold any antiepileptic medications, including her home Lyrica. She is unable to tolerate Neurontin, and she can follow up with her primary care provider as an outpatient. The patient's blood pressure was mildly elevated. She is unable to tolerate Norvasc due to swelling. I am going to place her on a low dose of hydralazine, and blood pressure will need to be followed up by Dr. Meléndez as an outpatient. Please note the patient's hemoglobin A1C is found to be significantly low here at 5.9. I am going to discontinue her metformin, given some intermittent hypoglycemia may be causing symptoms, and sugars can be reevaluated on an outpatient basis. DISCHARGE CONDITION Stable. DISCHARGE STATUS Discharge to home. DISCHARGE MEDICATIONS 1. Paxil 30 mg b.i.d. 2. Zyrtec 10 mg daily p.r.n. allergies. 3. Metoprolol tartrate 25 mg daily. 4. Pravastatin 40 mg daily. 5. Doxazosin 2 mg daily. 6. Hydralazine 25 mg b.i.d. 7. Diclofenac 75 mg b.i.d. p.r.n. arthritis. 8. Calcitonin spray 1 squirt in nostril daily. 9. Klor-Con 20 mEq p.o. daily. 10. Spironolactone 25 mg daily. 11. Flexeril 10 mg daily p.r.n. muscle pain. 12. Vitamin B12/folic acid 1 tablet daily. 13. Vitamin D2 - 50,000 units p.o. weekly. DISCHARGE INSTRUCTIONS Patient instructed to follow a heart healthy diet, again to refrain from any further metformin. She can increase her activity as tolerated. FOLLOW-UP Patient will follow up with Dr. Meléndez in one week. Needs reevaluation of blood pressure at that time and long-term followup of sugars given discontinuation of metformin. Unit #: [id number] #: [id number] Patient: SACHA ARAGONRosaMEETSAPPHIRE MOYER Dictated by... Tita Gibson/domenic TD: 05/28/2017 09:21 JOB #: [id number] DISCHARGE SUMMARY Page 1 of 1 X Vicki Patterson MD X DISCHARGE SUMMARY
--- NOTE | ~2017-05-23 | CO ---
Unit #: [id number] #: [id number] Patient: MEET NOVOA [id number] [facility] [address] [facility]. [place], [place] [address] [id number] I MR#: [id number] NAME: MEET NOVOA ROOM: 552 Age: 71 Sex: F Admission Date: 05/25/2017 : 1945 Attending Physician: Vicki Patterson M.D. Primary Care Physician: Soraya Meléndez M.D. CONSULTATION REPORT HISTORY OF PRESENT ILLNESS This is a very pleasant 71-year-old female with a past medical history of hypertension, hyperlipidemia, abdominal aortic aneurysm status post repair at [facility] in 2014, BREANNE, chronic back pain, depression, diabetes mellitus, GERD with Zoraida fundoplication. The patient states she typically follows with Dr. Mederos and actually saw him several weeks ago. She reports she was out yesterday had gone out to the [employer], came home about 4:30 to 5 o'clock in the morning, and was walking from the porch to inside the house. She called for her dog and was became dizzy. She states she passed out and hit her head. She lives with the daughter. Her fall, however, was not witnessed. The patient denies any preceding events prior to her episode. She denied any complaints of chest pain or shortness of breath, however, she does report a history of palpitations from time to time, but none prior to this episode. She also reports she had two other episodes similar to this within the last 6 weeks, where she would get dizzy and feel strange. These episodes occurred in the kitchen at home and the patient said she just kind of grabbed on to the mena and does not remember much after that. She reports she thinks she lost consciousness for 30 to 60 seconds. Denies any loss of bowel or bladder control. The daughter states, however, at this time she had some shaking of her left hand and confusion as well as a blank stare. However, the daughter states the episode did not last long maybe 30 to 60 seconds. In the ER, initial blood pressure was 151/80, pulse was in the 60s. CT scan of the head was performed, which showed no acute abnormality. She also had a CT of the cervical spine, which showed no acute fracture. EKG performed showed sinus bradycardia rate of 59 beats per minute. No acute ischemic change. QTc interval 407 msec. Troponins have been negative. Labs are unremarkable except for low potassium of 3.3. We were asked to see for evaluation of the above. PAST MEDICAL HISTORY 1. The patient reports a left heart catheterization at [facility] in the remote past, reportedly normal, I have no records. 2. Abdominal aortic aneurysm, status post repair at [facility] in 2014. She follows with Dr. Santoro. 3. Obstructive sleep apnea not on CPAP. 4. Hypertension. 5. Hyperlipidemia. 6. Chronic back pain. 7. Depression. Unit #: [id number] #: [id number] Patient: MEET NOVOA 8. Diabetes mellitus. 9. GERD, status post Zoraida fundoplication. 10. 2D echocardiogram on 05/23/2017 shows LVEF of 55%, jolb-ec-qgyfpric MR, mild TR, albz-uz-gqmizhpl OR, RVSP is normal. PAST SURGICAL HISTORY 1. Abdominal aortic aneurysm repair in 2014. 2. Cholecystectomy. 3. Zoraida fundoplication. 4. Cardiac cath at [facility] in the remote past, reportedly normal. 5. Surgical procedure for ectopic . SOCIAL HISTORY The patient lives with her daughter. She does smoke a pack of cigarettes daily for 40+ years. Denies illicit drugs or alcohol. She states she uses a cane on occasion, but typically walks without assistance. FAMILY HISTORY Positive for mom with ID history and CHF. Sister with sick sinus syndrome and hypertension. ALLERGIES Norvasc and lisinopril causes facial swelling. Also reports allergy to amitriptyline, hydrocodone, oxycodone, propoxyphene, codeine, prednisone, Fentanyl. HOME MEDICATIONS Paxil 30 mg p.o. b.i.d., pravastatin 40 mg p.o. daily, metformin 500 mg p.o. b.i.d., metoprolol 25 mg p.o. daily, Klor-Con 20 mEq p.o. b.i.d., diclofenac 75 mg p.o. b.i.d., Flexeril 10 mg p.o. daily, Lyrica 25 mg p.o. daily, doxazosin 2 mg p.o. daily, vitamin D2 50,000 units weekly, vitamin B12/folic acid one daily, calcitonin (salmon) 3.7 mL nasal daily, Dyazide 37.5/25 one tab p.o. daily, Allergy Relief 10 mg daily, Augmentin 875 mg p.o. q.12 hours. REVIEW OF SYSTEMS Positive for right knee chronic swelling, history of esophageal strictures, fibromyalgia. Otherwise, negative except as stated above in the HPI. DIAGNOSTIC STUDIES LABORATORY RESULTS: Sodium 141, potassium 3.2, chloride 109, CO2 of 27, BUN 12, creatinine 0.6, glucose 113. Hemoglobin 10.8, hematocrit 34.1, WBCs 9.9, platelet count 255. Magnesium 1.7. Troponin has been less than 0.03. IMAGING STUDIES: CT of the head, imaging shows no acute abnormality. Chest x-ray shows no acute abnormality. CT of the cervical spine shows no fracture. CARDIOVASCULAR STUDIES: EKG shows sinus bradycardia, rate of 59 beats per minute, no acute ischemic changes noted. PHYSICAL EXAMINATION GENERAL: This is a very pleasant 71-year-old female, in no acute distress. VITAL SIGNS: Temperature is 98, pulse 62, respiratory rate 18, blood Unit #: [id number] #: [id number] Patient: MEET NOVOA pressure 155/64. BMI is 29. HEENT: Head is atraumatic and normocephalic. Pupils are equal and round. NECK: Trachea is midline. No lymphadenopathy or thyromegaly. Carotid upstrokes are normal. No carotid bruit. CARDIOVASCULAR: S1 and S2. Regular rate and rhythm. No murmur, gallop, or rub. LUNGS: Clear to auscultation. No adventitious breath sounds. No rales, no rhonchi, no wheezes. ABDOMEN: Soft, nontender, nondistended. Bowel sounds are present. EXTREMITIES: Pulses are palpable. She does have a trace of swelling in the right knee area, which is chronic per the patient. No clubbing or cyanosis is noted. IMPRESSION 1. Syncope, rule out cardiogenic cause. 2. History of palpitations, but no documented evidence of atrial fibrillation in the past. 3. Sinus bradycardia. 4. Hypertension. 5. Hyperlipidemia. 6. Diabetes mellitus, type 2. 7. History of abdominal aortic aneurysm repair at [facility] in 2014. 8. Tobacco abuse. 9. Left ventricular ejection fraction 55% with loci-ig-qnirlgck MR, mild TR, mild OR, RVSP is normal. PLAN We have been asked to see the patient secondary to recurrent syncopal episodes. She has undergone orthostatic blood pressures which were negative. We will plan to check carotid Dopplers. Also replace her electrolytes as her potassium is slightly low as well as her magnesium. It is important to evaluate for cardiogenic source as the patient does have significant risk factors for ischemia. We will plan on proceeding with Lexiscan Cardiolite in the a.m. The patient will be kept n.p.o. after midnight. We will ask for her recent office note from Dr. Mederos's office as well. It does appear that the patient does have a history of obstructive sleep apnea and is noncompliant with CPAP. Her BREANNE could be contributing to her symptoms as well. Further recommendations pending Dr. Wells's assessment. Dictated by... Miriam Vogel A.P.R.N. for Avery Wells M.D. LMW/modl TD: 05/26/2017 04:47 JOB #: [id number] Unit #: [id number] #: [id number] Patient: MEET NOVOA CONSULTATION REPORT Page 1 of 1 X Miriam Vogel APRN CONSULTATION REPORT
--- NOTE | ~2017-05-23 | CT71 ---
[facility] A Service [facility] RADIOLOGY TEXT RESULTS PATIENT: MEET NOVOA LOCATION: [place] [address]- : [birth year] UNIT #: [id number] AGE: [address]: Vane Ragsdale MD SEX: F ORDER DR: [id number] [facility] [address] [place], [place] [address] [id number] I MR#: [id number] Acc #: [id number] NAME: MEET NOVOA : 1945 SEX: F STUDY DATE/TIME: 05/23/2017 6:21 UNIT: C5B ROOM: [facility] STUDY DESCRIPTION: CT Head Wo Contrast Attending Physician: Vane Ragsdale M.D. Ordering Physician: Franco Brenner M.D. Primary Care Physician: Soraya Meléndez M.D. MEDICAL IMAGING REPORT This report is preliminary unless electronic signature is present EXAM CT head, without contrast, 05/23/2017. HISTORY Pain, syncope, and dizzy; onset this a.m. Hit left side of head and neck on dresser. Left-sided neck pain and headache. TECHNIQUE CT head performed skull base through vertex without intravenous contrast. This CT exam was performed with one or more of the following radiation dose reduction techniques: automatic exposure control, adjustment of mA and/or kV according to patient size, and iterative reconstruction. COMPARISON 10/15/2012 FINDINGS The brain stem is unremarkable. The cerebellum and cerebral hemispheres show normal ferrari matter-white matter differentiation. No hemorrhage. No evidence of acute cortical ischemia. Midline structures nondisplaced. Basal ganglia intact. Ventricles, cisterns and sulci normal in size and contour. No intraaxial or extraaxial mass effect. No intra- or extraaxial abnormal fluid collection. Intraorbital soft tissues unremarkable. Visualized paranasal sinuses and mastoid air cells clear. No fracture. No extracranial soft tissue abnormality. IMPRESSION Normal CT of the head. If the patient has ongoing neurologic symptoms, consider follow-up imaging. Dictated by... [facility] A Service of [facility] RADIOLOGY TEXT RESULTS PATIENT: MEET NOVOA LOCATION: [facility] 552-01 : [birth year] UNIT #: [id number] AGE: [address]: Vane Ragsdale MD SEX: F ORDER DR: Kevin Gregorio M.D. THIS IS AN ELECTRONICALLY VERIFIED REPORT Kevin Gregorio M.D. at 05/24/2017 9:44 PM PJ/ashley TD: 05/23/2017 11:41 JOB #: [id number] MEDICAL IMAGING REPORT Page 1 of 1 COPY
--- NOTE | ~2017-05-23 | EE ---
Unit #: [id number] #: [id number] Patient: MEET NOVOA [id number] [address] [address] [id number] I MR#: [id number] NAME: MEET NOVOA : 1945 SEX: F STUDY DATE/TIME: 05/26/2017 UNIT: C5B ROOM: 552 STUDY DESCRIPTION: EEG Attending Physician: Vicki Patterson M.D. Referring Physician: Gurjit Khoury M.D. Primary Care Physician: Soraya Meléndez M.D. NEURODIAGNOSTICS REPORT EXAM EEG REASON FOR THE STUDY Syncopal-type episodes. EEG DESCRIPTION This is an inpatient, digitally recorded multi-montage adult EEG with leads placed according to the International 10-20 System. Hyperventilation and photic stimulation was attempted. With the patient fully aroused, there is 10-11 Hz posterior dominant alpha rhythm which is symmetric and attenuates with eyes opening. The patient did become drowsy and stage 2 sleep was seen. No asymmetry. No clearcut interictal discharges or clinical events were seen. Hyperventilation was attempted but I did not see any significant slowing, accentuation of slowing or other abnormalities. Photic stimulation was attempted in intermittent stepwise pattern up to the flash frequency of 30 Hz but I did not see any driving, asymmetry or paroxysmal activity. IMPRESSION This is an essentially normal adult awake and asleep EEG. An EEG like this does not rule out epilepsy. Clinical correlation is recommended. Dictated by... Tita Shaffer/kulwinder TD: 05/27/2017 06:53 JOB #: [id number] Unit #: [id number] #: [id number] Patient: MEET NOVOA NEURODIAGNOSTICS REPORT Page 1 of 1 X Gurjit Khoury MD NEURODIAGNOSTICS REPORT
[~2017-05-23 06:07] MED LIST changes: -ALDACTONE25 MG PO; -ALL DAY ALLERGY10 M2 PO; -AUGMENTIN PO; -CALCITONIN-SAL3.7 ML; -DOXAZOSIN MESYLA2 MG PO; -DYAZIDE 371 CAP 37.5 PO; -FLEXERIL10 MG PO; -HYDRALAZINE HCL25 MG PO; -KCL PO; -LYRICA25 MG DOB; -METFORMIN HCL500 M1 PO; -METOPROLOL SUCC25 MG PO; -PATIENT'S PHARMACY; -PAXIL30 MG PO; -PRAVASTATIN SOD40 MG PO; -VITAMIN B12-FO1 EACH PO; -VITAMIN D250000 UNIT PO; -VOLTAREN75 MG PO; -ZYRTEC1 MG/1 ML PO
[2017-05-23 06:57] LABS: BASOPHIL# 0.1 X10e3 (0-0.3); EOSINOPHIL# 0.2 X10e3 (0-0.7); EOSINOPHIL% 1.6 % (0.0-7.0); HEMATOCRIT 35.6 % (35.0-45.0); HEMOGLOBIN 11.8 gm/dL (12.0-16.0); LYMPHOCYTE% 27.6 % (17.0-45.0); MEAN CELL VOLUME 86.1 FL (83-96); MEAN CORPUSCULAR HEMOGLOBIN 28.6 PG (28-34); MEAN CORPUSCULAR HGB CONC 33.2 g/dL (30-36); MONOCYTE% 9.3 % (3.0-12.0); NEUTROPHIL# 6.6 X10e3 (1.5-7.1); NEUTROPHIL% 60.5 % (40-75); PLATELET COUNT 258 X10e3 (140-420); RED BLOOD COUNT 4.13 X10e (3.90-5.30); WHITE BLOOD COUNT 10.8 X10e3 (4.0-10.5)
[2017-05-23 06:58] LABS: DIFF IND NO
[2017-05-23 07:38] LABS: ALBUMIN SERUM 3.9 g/dL (3.5-5.0); BILIRUBIN, DIRECT 0.1 mg/dL (0.0-0.2); BILIRUBIN,INDIRECT 0.3 mg/dL (0.0-0.9); BILIRUBIN,TOTAL 0.4 mg/dL (0.2-2.0); BUN/CREATININE RATIO 21.25; CALCIUM SERUM 9.2 mg/dL (8.4-10.2); CREATININE SERUM 0.8 mg/dL (0.6-1.4); POTASSIUM 3.3 mmol/L (3.5-5.1); PROTEIN TOTAL SERUM 7.2 g/dL (6.0-8.3)
[2017-05-23] MEDS ORDERED: PAXIL30 MG PO (08:32)
[2017-05-23] MEDS ORDERED: PRAVASTATIN SOD40 MG PO (08:32)
[2017-05-23] MEDS ORDERED: METFORMIN HCL500 M1 PO (08:33)
[2017-05-23] MEDS ORDERED: METOPROLOL SUCC25 MG PO (08:34)
[2017-05-23] MEDS ORDERED: KCL PO (08:35)
[2017-05-23] MEDS ORDERED: FLEXERIL10 MG PO (08:36)
[2017-05-23] MEDS ORDERED: VOLTAREN75 MG PO (08:36)
[2017-05-23] MEDS ORDERED: ZYRTEC1 MG/1 ML PO (08:38)
[2017-05-23] MEDS ORDERED: LYRICA25 MG DOB (08:38)
[2017-05-23] MEDS ORDERED: DOXAZOSIN MESYLA2 MG PO (08:39)
[2017-05-23] MEDS ORDERED: VITAMIN B12-FO1 EACH PO (08:40)
[2017-05-23] MEDS ORDERED: VITAMIN D250000 UNIT PO (08:40)
[2017-05-23] MEDS ORDERED: CALCITONIN-SAL3.7 ML (08:41)
[2017-05-23] MEDS ORDERED: DYAZIDE 371 CAP 37.5 PO (08:42)
[2017-05-23] MEDS ORDERED: ALL DAY ALLERGY10 M2 PO (09:07)
[2017-05-23] MEDS ORDERED: AUGMENTIN PO (09:20)
[2017-05-23] MEDS ORDERED: PATIENT'S PHARMACY (09:31)
[2017-05-23 13:44] LABS: MAGNESIUM 1.8 mg/dL (1.6-3.0)
[2017-05-23 14:30] LABS: %MB 1.9 % (0.0-4.0); MB 1.3 ng/ml
[2017-05-23 19:21] LABS: MB 1.3 ng/ml
[2017-05-24 04:49] LABS: HEMATOCRIT 34.1 % (35.0-45.0); HEMOGLOBIN 10.8 gm/dL (12.0-16.0); MEAN CELL VOLUME 85.9 FL (83-96); MEAN CORPUSCULAR HEMOGLOBIN 27.3 PG (28-34); MEAN CORPUSCULAR HGB CONC 31.8 g/dL (30-36); MEAN PLATELET VOLUME 7.6 FL (6.5-11.5); RED BLOOD COUNT 3.97 X10e (3.90-5.30); RED CELL DISTRIBUTION WIDTH 15.2 % (11.0-15.5); WHITE BLOOD COUNT 9.9 X10e3 (4.0-10.5)
[2017-05-24 06:29] LABS: URINE APPEARANCE CLEAR; URINE BILIRUBIN NEG (NEG); URINE BLOOD NEG (NEG); URINE COLOR YELLOW; URINE GLUCOSE NEG (NEG); URINE KETONE NEG (NEG); URINE LEUKOCYTE ESTERASE NEG (NEG); URINE NITRATE NEG (NEG); URINE PROTEIN NEG (NEG); URINE SPECIFIC GRAVITY 1.007 (1.003-1.035); URINE UROBILINOGEN 0.2 MG/DL (NEG)
[2017-05-24 06:59] LABS: CALCIUM SERUM 8.7 mg/dL (8.4-10.2); CREATININE SERUM 0.6 mg/dL (0.6-1.4); GLOM FILT RATE Estimated 106.3 mL/min (>60); MAGNESIUM 1.7 mg/dL (1.6-3.0); POTASSIUM 3.2 mmol/L (3.5-5.1)
[2017-05-24 07:10] LABS: AMPHETAMINE NEG (NEG); BARBITURATES NEG (NEG); BENZODIAZEPINES NEG (NEG); COCAINE NEG (NEG); MARIJUANA POS (NEG); OPIATES NEG (NEG); TRICYCLIC ANTIDEPRESSANTS NEG (NEG); U METHADONE NEG (NEG)
[2017-05-25 05:11] LABS: HEMATOCRIT 34.2 % (35.0-45.0); HEMOGLOBIN 11.1 gm/dL (12.0-16.0); MEAN CELL VOLUME 85.6 FL (83-96); MEAN CORPUSCULAR HEMOGLOBIN 27.9 PG (28-34); MEAN CORPUSCULAR HGB CONC 32.5 g/dL (30-36); MEAN PLATELET VOLUME 8.1 FL (6.5-11.5); RED BLOOD COUNT 3.99 X10e (3.90-5.30); RED CELL DISTRIBUTION WIDTH 14.9 % (11.0-15.5); WHITE BLOOD COUNT 8.4 X10e3 (4.0-10.5)
[2017-05-25 07:20] LABS: BUN/CREATININE RATIO 18.33; CALCIUM SERUM 8.8 mg/dL (8.4-10.2); CREATININE SERUM 0.6 mg/dL (0.6-1.4); GLOM FILT RATE Estimated 106.3 mL/min (>60); MAGNESIUM 1.7 mg/dL (1.6-3.0); POTASSIUM 3.7 mmol/L (3.5-5.1)
[2017-05-26 05:26] LABS: BASOPHIL# 0.1 X10e3 (0-0.3); BASOPHIL% 0.9 % (0-2.5); EOSINOPHIL# 0.2 X10e3 (0-0.7); EOSINOPHIL% 2.7 % (0.0-7.0); HEMOGLOBIN 12.3 gm/dL (12.0-16.0); LYMPHOCYTE# 2.4 X10e3 (1.0-3.5); LYMPHOCYTE% 28.8 % (17.0-45.0); MEAN CELL VOLUME 84.9 FL (83-96); MEAN CORPUSCULAR HEMOGLOBIN 28.2 PG (28-34); MEAN CORPUSCULAR HGB CONC 33.2 g/dL (30-36); MEAN PLATELET VOLUME 7.8 FL (6.5-11.5); MONOCYTE# 0.8 X10e3 (0-1.0); MONOCYTE% 9.3 % (3.0-12.0); NEUTROPHIL# 4.9 X10e3 (1.5-7.1); NEUTROPHIL% 58.3 % (40-75); PLATELET COUNT 283 X10e3 (140-420); RED BLOOD COUNT 4.36 X10e (3.90-5.30); WHITE BLOOD COUNT 8.4 X10e3 (4.0-10.5)
[2017-05-26 05:30] LABS: DIFF IND NO
[2017-05-26 06:28] LABS: BUN/CREATININE RATIO 13.75; CALCIUM SERUM 9.4 mg/dL (8.4-10.2); CREATININE SERUM 0.8 mg/dL (0.6-1.4); POTASSIUM 3.3 mmol/L (3.5-5.1)
[2017-05-26] MEDS ORDERED: HYDRALAZINE HCL25 MG PO (13:36)
[2017-05-26] MEDS ORDERED: ALDACTONE25 MG PO (13:50)
== END 2017-05-26 15:09 | disposition home or self-care (01) | DRG 312 ==
LOC: CED 06:07 → C5B 08:20 → CED 08:20 → C5B 09:01
PROVIDERS: Emergency Medicine; Family Medicine; Internal Medicine; Internal Medicine Cardiovascular Disease; Psychiatry & Neurology Neurology
PROC: B24BYZZ Ultrasonography of Heart with Aorta using Other Contrast (ICD-10-PCS; principal; 2017-05-25)
DX: R55 Syncope and collapse (principal); E11.9 Type 2 diabetes mellitus without complications; R00.1 Bradycardia, unspecified; I10 Essential (primary) hypertension; E78.5 Hyperlipidemia, unspecified; G47.33 Obstructive sleep apnea (adult) (pediatric); K21.9 Gastro-esophageal reflux disease without esophagitis; F32.9 Major depressive disorder, single episode, unspecified; I08.8 Other rheumatic multiple valve diseases; F17.210 Nicotine dependence, cigarettes, uncomplicated; R00.2 Palpitations; E87.6 Hypokalemia; F12.10 Cannabis abuse, uncomplicated; G89.4 Chronic pain syndrome; Z79.84 Long term (current) use of oral hypoglycemic drugs; E66.3 Overweight; Z68.29 Body mass index [BMI] 29.0-29.9, adult
CPT/HCPCS: 36415; 70450; 71010; 72125; 78452; 80048; 80061; 80076; 80307; 81003; 82550; 82553; 82947; 83036; 83735; 84132; 84443; 84484; 85025; 85027; 87086; 93005; 93017; 93306; 93880; 93971; 95816; 96360; 97116; 97161; 99285; A9500; G0480; G8978-GP; G8979-GP; G8980-GP; J0360; J1815; J2785; J3475

== ENCOUNTER → 2017-06-02 | Outpatient (CLI) | payer MEDICARE, BC ==
[~2017-06-02] MED LIST changes: +ALDACTONE25 MG PO; +ALL DAY ALLERGY10 M2 PO; +AUGMENTIN PO; +CALCITONIN-SAL3.7 ML; +DOXAZOSIN MESYLA2 MG PO; +DYAZIDE 371 CAP 37.5 PO; +FLEXERIL10 MG PO; +HYDRALAZINE HCL25 MG PO; +KCL PO; +LYRICA25 MG DOB; +METFORMIN HCL500 M1 PO; +METOPROLOL SUCC25 MG PO; +PATIENT'S PHARMACY; +PAXIL30 MG PO; +PRAVASTATIN SOD40 MG PO; +VITAMIN B12-FO1 EACH PO; +VITAMIN D250000 UNIT PO; +VOLTAREN75 MG PO; +ZYRTEC1 MG/1 ML PO
--- NOTE | ~2017-06-02 | US89 ---
[facility] A Service of [facility] RADIOLOGY TEXT RESULTS PATIENT: MEET NOVOA LOCATION: [facility] : [birth year] UNIT #: [id number] AGE: [address]: Andrew Santoro MD SEX: F ORDER DR: [id number] [facility] [address] [place], [place] [address] [id number] O MR#: [id number] Acc #: [id number] NAME: MEET NOVOA : 1945 SEX: F STUDY DATE/TIME: 06/02/2017 14:08 UNIT: CNIV ROOM: STUDY DESCRIPTION: US Lower Ext Arterial Exam Attending Physician: Andrew Santoro M.D. Referring Physician: Andrew Santoro M.D. Ordering Physician: Andrew Santoro M.D. Primary Care Physician: Soraya Meléndez M.D. MEDICAL IMAGING REPORT This report is preliminary unless electronic signature is present EXAM Bilateral lower extremity arterial duplex. HISTORY Evaluate popliteal arteries for aneurysm. FINDINGS Duplex imaging of the bilateral extremities was performed. The right common femoral artery is patent with triphasic waveforms and normal velocities. Popliteal artery is patent with a velocity of 91 cm/sec. There is no evidence of aneurysm seen. The popliteal artery measures 8 mm in maximal diameter in the midportion. Only longitudinal images were available for review and transverse images were not available for review. The popliteal artery appears to be free of thrombus. On the left side, the superficial femoral artery is patent with triphasic waveforms. The left popliteal artery is also patent with a maximal diameter of 7 mm in the midportion. No evidence of aneurysm or thrombus is seen. Once again, only longitudinal images were available for review and transverse images are not available for review. IMPRESSION No evidence of aneurysm is seen in the lower extremities bilaterally. Dictated by... Andrew Santoro M.D. THIS IS AN ELECTRONICALLY VERIFIED REPORT Andrew Santoro M.D. at 06/04/2017 9:[address] [facility] A Service of [facility] RADIOLOGY TEXT RESULTS PATIENT: MEET NOVOA LOCATION: [facility] : [birth year] UNIT #: [id number] AGE: [address]: Andrew Santoro MD SEX: F ORDER DR: Cassandra TD: 06/02/2017 21:46 JOB #: [id number] MEDICAL IMAGING REPORT Page 1 of 1 COPY
== END | disposition home or self-care (01) ==
LOC: CNIV 13:18
DX: R09.89 Other specified symptoms and signs involving the circulatory and respiratory systems (principal)
CPT/HCPCS: 93923